=== PATIENT | female | born 1945 | race Caucasian/White ===

== ENCOUNTER 2020-01-10 09:15 | Day surgery (SDC) | payer MEDICARE, OTHER ==
[~2020-01-10 09:15] MED LIST: Acetaminophen TAB* 325 MG PO ONE; Buffered Lidocaine 1% SYRIN* 1 ML/SYRINGE INTRADERM ONE; Lactated Ringers 1000 ML Bag* 1,000 ML IV SCH
[2020-01-10] MEDS ORDERED: Acetaminophen TAB* 325 MG ONE (09:26)
[2020-01-10] MEDS ORDERED: Buffered Lidocaine 1% SYRIN* 1 ML/SYRINGE INTRADERM ONE (09:26)
[2020-01-10] MEDS ORDERED: ceFAZolin 2 GM in NS PREMIX(*) 2 GM/100 ML BAG IVPB ONE (09:26)
[2020-01-10] MEDS ORDERED: Midazolam* 1 MG/ML 2 ML VIAL (2 MG) ONE (10:18)
[2020-01-10] MEDS ORDERED: fentaNYL* 50 MCG/ML 5 ML VIAL (250 MCG VIAL) ONE (10:18)
[2020-01-10] MEDS ORDERED: ROPIVACAINE 5 MG/ML 30 ML BTL (0.5%) ONE (11:48)
[2020-01-10] MEDS ORDERED: EPINEPHRINE 1 MG/ML 1 ML VIAL ONE (11:50)
[2020-01-10] MEDS ORDERED: Bupivacaine 0.5% W/EPI SDV* 10 ML VIAL INJ ONE (11:50)
[2020-01-10] MEDS ORDERED: Rocuronium* 10 MG/ML VIAL ONE (11:56)
[2020-01-10] MEDS ORDERED: Dexamethasone IV* 4 MG/ML 1 ML (4 MG) ONE (13:08)
[2020-01-10] MEDS ORDERED: EPHEDrine (Pressors)* 50 MG/ML VIAL ONE (13:16)
[2020-01-10] MEDS ORDERED: Ketorolac INJ* 30 MG/ML 1 ML VIAL IV PRN (13:34)
[2020-01-10] MEDS ORDERED: Naloxone* 0.4 MG/ML 1 ML VIAL IV PRN (13:34)
[2020-01-10] MEDS ORDERED: PROCHLORPERAZINE INJ 5 MG/ML 2 ML VIAL IV PRN (13:34)
[2020-01-10] MEDS ORDERED: Glycopyrrolate IV* 0.2 MG/ML 1 ML VIAL ONE (13:35)
[2020-01-10] MEDS ORDERED: Ondansetron INJ* 2 MG/ML VIAL ONE (13:35)
[2020-01-10 14:56] VITALS: BP 131/86
--- NOTE | 2020-01-10 23:28 | OP ---
OPERATIVE REPORT: DATE OF OPERATION: 01/10/20. DATE OF : 49. SURGEON: Jose Maria Kenny MD. LABORER SHIPYARD: JEANNE Moran. A physician veterinary technician assistant was required for the length of the procedure for assistance with patient positioning, instrumentation, and closure. ANESTHESIOLOGIST: Dr. Holly Donovan. ANESTHESIA: General anesthesia, regional interscalene block anesthesia. PRE-OP DIAGNOSES: 1. Left shoulder rotator cuff tendon tear, supraspinatus, partial thickness. 2. Left shoulder subacromial impingement and bursitis. 3. Left shoulder acromioclavicular joint osteoarthritis. 4. Left shoulder possible biceps tendinosis or superior labral tear. 5. Left shoulder glenohumeral joint osteoarthritis. 6. Left shoulder glenohumeral joint loose bodies. 7. Left shoulder capsulitis, stiffness. POST-OP DIAGNOSES: 1. Left shoulder rotator cuff tendonitis and partial thickness tearing, supraspinatus, low grade, articular-sided and bursal sided. 2. Left shoulder subacromial impingement and bursitis. 3. Left shoulder acromioclavicular joint osteoarthritis. 4. Left shoulder superior labral tear and biceps tendinosis. 5. Left shoulder glenohumeral joint osteoarthritis with articular cartilage flap of glenoid articular cartilage. 6. No clear loose bodies, left shoulder. 7. Left shoulder minimal capsulitis, stiffness. OPERATIVE PROCEDURE: 1. Left shoulder manipulation under anesthesia. 2. Left shoulder arthroscopic rotator cuff tendon repair, supraspinatus, with Regeneten biologic patch. 3. Left shoulder arthroscopic subacromial decompression. 4. Left shoulder arthroscopic distal clavicle resection. 5. Left shoulder arthroscopic release of biceps tendon. 6. Left shoulder arthroscopic extensive debridement of glenohumeral joint including of a large cartilage flap of the glenoid, release of biceps tendon, and debridement of significnat subacromial bursitis tissue ANTIBIOTICS: Ancef 2 g IV. IV FLUIDS: See Anesthesia note. SWRO-AH-TIEA TIME: 48 minutes. SPECIMEN: None. IMPLANTS: [employer] Regeneten biologic patch, size medium. COMPLICATIONS: None. ESTIMATED BLOOD LOSS: Minimal. INDICATIONS FOR PROCEDURE: The patient is a 74-year-old woman with significant left shoulder pain with activities of daily living as well as night time pain, insufficiently responsive to nonoperative management. The patient opted for surgery. I discussed risks and potential complications of surgery including rotator cuff tendon retear, and the possibility for incomplete resolution of pain given the patient's glenohumeral joint osteoarthritis. DESCRIPTION OF PROCEDURE: In preoperative holding, the patient signed a written consent. Operative extremity was marked in preoperative holding. I confirmed that the patient was okay with the biceps release versus tenodesis. I preferred biceps release in arthritic shoulders. The patient underwent a regional interscalene nerve block in preoperative holding. The patient was taken back to the operating room and placed supine on the operating room table, sedated and intubated. A mini time-out was performed. I performed an examination under anesthesia. It revealed range of motion of 170 degrees of forward flexion, 90 degrees external, and 80 degrees internal rotation. I manipulated the shoulder and was able to obtain 180 degrees of forward flexion. The patient was placed in the lateral decubitus position with the left shoulder up. Axillary roll. All bony prominences padded. Longitudinal traction with 10 pounds with the appropriate amount of shoulder forward flexion and abduction. A beanbag was hardened. Left shoulder was prepped and draped. Formal surgical time-out performed. I entered the glenohumeral joint with a spinal needle from posterior. I infused 30 cc of normal saline. Atraumatic creation of posterior glenohumeral joint portal. I assessed the glenohumeral joint. There was more arthritic change in the glenohumeral joint than I had anticipated preoperatively. In the center of the glenoid and more superiorly than inferiorly, there was grade 4 articular cartilage loss. When I looked closely, there was also a flap about the anteroinferior glenoid with a full thickness flap of articular cartilage lifted up off of the bone. There was at least grade 1 injury to the articular cartilage on the humeral head side. There was some low grade articular sided tearing of the supraspinatus anteriorly visible. It did not appear to be full thickness. There appeared to be some superior labrum tearing as well. I established an anterior glenohumeral joint portal under direct visualization. I confirmed the unstable superior labral tear. I brought in scissors and cut the long head of the biceps tendon near its origin. I probed the rotator cuff and confirmed that there was no full thickness tear. The partial thickness under-sided tear was limited to something like 4 mm or so. I probed the articular cartilage flap and it indeed was clearly unstable. I brought in some biters and the shaver, and debrided that back to a stable rim of articular cartilage. I removed instruments and fluid from the glenohumeral joint and switched to the subacromial space. I established the anterior and posterior portals. Under direct visualization, I established lateral and then posterolateral portals. Subacromial space was significant for a significant amount of bursitis being present. I used an arthroscopic shaver to debride this. There was significant fraying of the bursal side of the supraspinatus clearly some low grade tearing present. I skeletonized the undersurface of the acromion with an arthroscopic cautery device, and then I smoothed out, the undersurface of the anterior aspect of the acromion with an arthroscopic ijeoma. This flattened out the undersurface of the acromion nicely removing some spurs. I decided to place a Regeneten patch. I used a medium-sized patch. I created superolateral portal for staple insertion and I widened my lateral portal for insertion of the patch. I held the patch in place with PLLA therese only. It was stable to probing and to movement of the humerus. I moved to the AC joint. I debrided bursitic tissue with the cautery device and then removed 8 mm distal end of the clavicle with an arthroscopic ijeoma. I returned to the patch and placed several additional therese. I removed instruments and fluid from the subacromial space. Closed skin with [id number] and 12 stitches using nylon 3.0 suture. Xeroform, 4x4s, ABDs, and foam tape. Sling and abduction pillow. DISPOSITION: The patient was discharged home when medically stable. She is to start physical therapy immediately according to the Regeneten protocol. I stressed with the patient's how it is important to get that patient mobilized with range of motion sooner rather than later given her glenohumeral joint osteoarthritis. She will follow up with in 10 to 14 days postoperatively. She will be in a sling for about 2 weeks postoperatively. Percocet as needed for pain control. [id number]/[facility] #: [id number] [facility]ITAL[facility]
== END 2020-01-10 14:59 | disposition home or self-care (01) ==
LOC: OR 09:15
PROVIDERS: ATTEND Orthopaedic Surgery
DX: M75.102 Unspecified rotator cuff tear or rupture of left shoulder, not specified as traumatic (principal); M75.52 Bursitis of left shoulder; M75.22 Bicipital tendinitis, left shoulder; M19.012 Primary osteoarthritis, left shoulder; M75.42 Impingement syndrome of left shoulder; M24.812 Other specific joint derangements of left shoulder, not elsewhere classified; G89.18 Other acute postprocedural pain; I34.0 Nonrheumatic mitral (valve) insufficiency; I10 Essential (primary) hypertension; E78.00 Pure hypercholesterolemia, unspecified
CPT/HCPCS: A9270-GY; C1713; J0690; J1100; J2250; J2405; J2795; J3010